=== PATIENT | female | born 1930 | race African-American/Black ===

== ENCOUNTER 2018-07-20 11:12 | Emergency (ER) | payer OTHER ==
[~2018-07-20] VITALS: Ht 165.1 cm; Wt 73.0 kg
[2018-07-20] MEDS ORDERED: IBUPROFEN 600MG TABLET PO ONE (12:15)
[2018-07-20 16:47] VITALS: BP 140/48
== END 2018-07-20 17:18 | disposition home or self-care (01) ==
LOC: ER 11:12
DX: H57.11 Ocular pain, right eye (principal); E11.9 Type 2 diabetes mellitus without complications; V49.49XA Driver injured in collision with other motor vehicles in traffic accident, initial encounter; Y93.89 Activity, other specified; Y92.89 Other specified places as the place of occurrence of the external cause; Y99.8 Other external cause status
CPT/HCPCS: 70486; 71101; 99284